=== PATIENT | male | born 1955 | race Caucasian/White ===

== ENCOUNTER 2022-12-24 08:35 | Outpatient (CLI) | payer MEDICARE, SELFPAY ==
[2022-12-24 09:20] LABS: Anion Gap 4 mmol/L (8-16); Blood Urea Nitrogen 30 mg/dL (9-20); Calcium 8.5 mg/dL (8.4-10.2); Carbon Dioxide 29 mmol/L (22-30); Chloride 102 mmol/L (98-107); Estimated Glomerular Filt Rate > 60; Glucose 102 mg/dL (65-110); Magnesium 2.1 mg/dL (1.6-2.3); Potassium 4.8 mmol/L (3.4-5.0); Sodium 135 mmol/L (137-145)
[2022-12-24 10:27] LABS: Free T4 Free Thyroxine 1.33 ng/mL (0.78-2.19)
== END 2022-12-24 08:36 | disposition home or self-care (01) ==
PROVIDERS: PCP Internal Medicine; Visit Provider Internal Medicine
DX: I48.92 Unspecified atrial flutter (principal); Z79.899 Other long term (current) drug therapy
CPT/HCPCS: 36415; 80048; 83735; 84439; 84443

== ENCOUNTER 2023-01-02 07:47 | Outpatient (CLI) | payer MEDICARE, SELFPAY ==
--- NOTE | 2023-01-02 08:00 | ECHO_ITS ---
Patient Info Name: Abhijit Matthews Age: 67 years : 1955 Gender: Male Ht: 72 in Wt: 198 lbs BSA: 2.15 m2 HR: 77 bpm BP: 153 / 117 mmHg Heart Rhythm: Atrial Flutter Technical Quality: Fair Exam Date: 01/02/2023 8:06 AM Exam Location: [facility] Patient Status: Outpatient Admit Date: 01/02/2023 Staff Ordering Physician: Jose Luis Gutierrez MD Instructional Technology Director: Baylee Powell RDCS Attending Provider: Jose Luis Gutierrez MD Referring Physician: Brenda YOUNG; Exam Type: CA echo doppler color flow Study Info Indications - Unspecified atrial flutter Complete two-dimensional, color flow and Doppler transthoracic echocardiogram is performed. Summary 1. Complete two-dimensional, color flow and Doppler transthoracic echocardiogram is performed. 2. Left ventricular chamber dimension is normal. 3. Left ventricular systolic function is normal, estimated at 55-60%. 4. The left ventricular diastolic function is normal. 5. E/e' 8 is minimally elevated. 6. Atrial flutter. 7. Right ventricular systolic function is reduced and with abnormal TAPSE 1.4 cm. 8. Left atrial chamber dimension is moderately enlarged. 9. There is trace aortic valve regurgitation. 10. There is mild mitral valve regurgitation. 11. There is mild tricuspid valve regurgitation. 12. No pulmonary hypertension, estimated pulmonary arterial systolic pressure is 21 mmHg. Left Ventricle E/e' 8 is minimally elevated. Atrial flutter. Left ventricular chamber dimension is normal. Left ventricular systolic function is normal, estimated at 55-60%. The left ventricular diastolic function is normal. Right Ventricle Right ventricular systolic function is reduced and with abnormal TAPSE 1.4 cm. Right ventricular chamber dimension is normal. Left Atria Left atrial chamber dimension is moderately enlarged. Right Atria Right atrial chamber dimension is normal. Aortic Valve The aortic valve is trileaflet. There is no aortic valve stenosis. There is trace aortic valve regurgitation. Pulmonic Valve There is no pulmonic regurgitation. Mitral Valve There is no mitral valve stenosis. There is mild mitral valve regurgitation. Tricuspid Valve There is mild tricuspid valve regurgitation. No pulmonary hypertension, estimated pulmonary arterial systolic pressure is 21 mmHg. Pericardium/Pleural There is no pericardial effusion. Inferior Vena Cava Normal inferior vena cava with >50% collapse upon inspiration consistent with normal right atrial pressure, 5 mmHg. Aorta The aortic root size at the sinus of Valsalva is normal. Left Ventricular Outflow Tract Name Value Normal LVOT 2D LVOT Diameter 2.1 cm LVOT Doppler LVOT Peak Gradient 3 mmHg LVOT Mean Gradient 2 mmHg LVOT VTI 16 cm LVOT VTI/AV VTI Ratio 0.7 LVOT Stroke Volume 57 ml LVOT CO 4.3 l/min LVOT CI 2.0 l/min/m2 Pulmonic Valve Name Value Normal ----
--- NOTE | 2023-01-04 12:27 | WPDHOLTEREM ---
Holter/Event Monitor Holter/Event Monitor Date of procedure: 01/02/23 Holter/Event Procedure: 48 Hr Holter Monitor Indications: Atrial flutter Conclusion: 1. 48 hour holter monitor on 01/02/23. 2. Underlying rhythm is atrial flutter. HR range 47-162 bpm; average HR 90 bpm. 3. No other supraventricular arrhythmias. 4. There are 1,847 premature ventricular complexes, 37 ventricular couplets, 3 ventricular trigeminy. No ventricular tachycardia. 5. No sinoatrial or atrioventricular blocks. No significant pauses greater than 2 seconds. 6. No symptoms available for correlation.
== END 2023-01-02 07:48 | disposition home or self-care (01) ==
PROVIDERS: PCP Internal Medicine; Visit Provider Internal Medicine
DX: I48.92 Unspecified atrial flutter (principal); Z79.899 Other long term (current) drug therapy; I49.3 Ventricular premature depolarization; I34.0 Nonrheumatic mitral (valve) insufficiency; I36.1 Nonrheumatic tricuspid (valve) insufficiency
CPT/HCPCS: 93225; 93226; 93306